=== PATIENT | male | born 2000 | race Caucasian/White ===

== ENCOUNTER 2021-03-14 23:40 | Emergency (ER) | payer BC ==
--- NOTE | 2021-03-14 23:50 | EDM.PDOC ---
ED HPI GENERAL MEDICAL PROBLEM - General Stated Complaint: WEIRD HEARTBEAT Time Seen by Provider: 03/14/21 23:49 Source of Information: Reports: Patient History Limitations: Reports: No Limitations - History of Present Illness INITIAL COMMENTS - FREE TEXT/NARRATIVE: Chu Sewell,complains of palpitations,a feeling of 'weirdness' of the heart. No SOB or Chest pain.He admists to stress. He has just started college at [employer] ED ROS GENERAL - Review of Systems Review Of Systems: Comprehensive ROS is negative, except as noted in HPI. ED EXAM, GENERAL - Physical Exam Exam: See Below Exam Limited By: No Limitations General Appearance: Alert, WD/WN, No Apparent Distress Nose: Normal Inspection Throat/Mouth: Normal Inspection Head: Atraumatic Neck: Normal Inspection Respiratory/Chest: No Respiratory Distress GI/Abdominal: Normal Bowel Sounds, Soft Neurological: Alert, Oriented, CN II-XII Intact Psychiatric: Normal Affect, Normal Mood Skin Exam: Warm, Dry #1 Interpretation EKG Date: 03/14/21 Rhythm: NSR Wallback: Normal P-Wave: Present Comparison: NA - No Prior EKG Course - Orders/Labs/Meds Orders: Active Orders 24 hr Category Date Time Status EKG 12 Lead [EK] Routine Ther 03/14/21 23:49 Ordered Labs: Laboratory Tests 03/14/21 03/14/21 03/14/21 Range/Units 23:59 23:59 23:59 WBC 11.8 H (3.2-10.1) x10-3/uL RBC 5.02 (3.90-5.90) x10(6)uL Hgb 15.0 (12.9-17.7) g/dL Hct 43.8 (38.3-50.1) % MCV 87.3 (80.8-98.7) fL MCH 30.0 (27.0-33.3) pg MCHC 34.3 (28.7-35.3) g/dL RDW 12.4 (12.4-15.0) % Plt Count 288 (117-477) x10(3)uL MPV 6.0 L (6.7-11.0) fL Neut % (Auto) 71.8 (40.3-71.8) % Lymph % (Auto) 21.5 (15.8-45.3) % [facility] [place] [facility] % (Auto) 4.8 L (5.5-15.2) % Eos % (Auto) 1.6 (0.1-6.8) % Baso % (Auto) 0.3 (0.3-3.8) % Neut # (Auto) 8.5 H (1.7-6.9) x10-3/uL Lymph # (Auto) 2.5 (0.5-4.5) x10-3/uL [facility] # (Auto) 0.6 (0.0-1.2) x10-3/uL Eos # (Auto) 0.2 (0.0-0.6) x10-3/uL Baso # (Auto) 0.0 (0.0-0.3) x10-3/uL Sodium 143 (135-145) mmol/L Potassium 4.2 (3.5-5.3) mmol/L Chloride 105 (100-110) mmol/L Carbon Dioxide 28 (21-32) mmol/L BUN 15 (7-18) mg/dL Creatinine 1.1 (0.70-1.30) mg/dL Est Cr Clr Drug Dosing TNP Estimated GFR (MDRD) > 60 (>60) BUN/Creatinine Ratio 13.6 (9-20) Glucose 102 (80-116) mg/dL Calcium 9.3 (8.2-10.1) mg/dL Total Bilirubin 0.6 (0.1-1.2) mg/dL AST 20 (5-25) IU/L ALT 23 (12-36) U/L Alkaline Phosphatase 67 (56-112) IU/L Troponin I 4.4 (4.0-60.3) pg/mL Total Protein 7.2 (6.0-8.0) g/dL Albumin 4.0 (3.2-4.5) g/dL Globulin 3.2 g/dL Albumin/Globulin Ratio 1.3 TSH, Ultra Sensitive (0.52-4.13) IU/mL 03/14/21 Range/Units 23:59 WBC (3.2-10.1) x10-3/uL RBC (3.90-5.90) x10(6)uL Hgb (12.9-17.7) g/dL Hct (38.3-50.1) % MCV (80.8-98.7) fL MCH (27.0-33.3) pg MCHC (28.7-35.3) g/dL RDW (12.4-15.0) % Plt Count (117-477) x10(3)uL MPV (6.7-11.0) fL Neut % (Auto) (40.3-71.8) % Lymph % (Auto) (15.8-45.3) % [facility] [place] [facility] % (Auto) (5.5-15.2) % Eos % (Auto) (0.1-6.8) % Baso % (Auto) (0.3-3.8) % Neut # (Auto) (1.7-6.9) x10-3/uL Lymph # (Auto) (0.5-4.5) x10-3/uL [facility] # (Auto) (0.0-1.2) x10-3/uL Eos # (Auto) (0.0-0.6) x10-3/uL Baso # (Auto) (0.0-0.3) x10-3/uL Sodium (135-145) mmol/L Potassium (3.5-5.3) mmol/L Chloride (100-110) mmol/L Carbon Dioxide (21-32) mmol/L BUN (7-18) mg/dL Creatinine (0.70-1.30) mg/dL Est Cr Clr Drug Dosing Estimated GFR (MDRD) (>60) BUN/Creatinine Ratio (9-20) Glucose (80-116) mg/dL Calcium (8.2-10.1) mg/dL Total Bilirubin (0.1-1.2) mg/dL AST (5-25) IU/L ALT (12-36) U/L Alkaline Phosphatase (56-112) IU/L Troponin I (4.0-60.3) pg/mL Total Protein (6.0-8.0) g/dL Albumin (3.2-4.5) g/dL Globulin g/dL Albumin/Globulin Ratio TSH, Ultra Sensitive 3.54 (0.52-4.13) IU/mL Meds: Medications Discontinued Medications Generic Name Dose Route Start Last Admin Trade Name Freq PRN Reason Stop Dose Admin Alprazolam 0.25 mg 03/14/21 23:59 03/15/21 00:17 Alprazolam 0.25 Mg Tab PO 03/15/21 00:00 Not Given NOW ONE Departure - Departure Time of Disposition: 15:00 Disposition: Home, Self-Care 01 Condition: Good Clinical Impression: Palpitations Referrals: Deborah Sanz [employer] [Primary Care Provider] - Forms: ED Department Discharge Care Plan Goals: Return to ED if symptoms continue or worsen. Follow up with primary care provider next week for follow up. - Problem List & Annotations (1) Palpitations SNOMED Code(s): 91407060 Code(s): R00.2 - PALPITATIONS Status: Acute Current Visit: No - Problem List Review Problem List Initiated/Reviewed/Updated: Yes - My Orders Last 24 Hours: My Active Orders 03/14/21 23:49 EKG 12 Lead [EK] Routine - Assessment/Plan Last 24 Hours: My Active Orders 03/14/21 23:49 EKG 12 Lead [EK] Routine Plan: Trop,CMP,TSH all normal. Xanax 1/4 mg onetime dose was offered ,declined.. DC home
[2021-03-14] MEDS ORDERED: ALPRAZolam 0.25 MG Tab PO ONE (23:59)
== END 2021-03-15 00:55 | disposition home or self-care (01) ==
LOC: FB.ED 23:40
DX: R00.2 Palpitations (principal)
CPT/HCPCS: 36415; 80053; 84443; 84484; 85025; 93005; 99285-25